=== PATIENT | female | born 1950 | race Caucasian/White ===

== ENCOUNTER 2023-10-18 08:05 | Outpatient (OUT) | payer MEDICARE, SELFPAY ==
--- NOTE | 2023-10-18 08:19 | MM_ITS ---
Patient Name: HERB EVANS MR#: [id number] : 1950 Exam Date: 10/18/2023 Ordering Doctor: DR ALLEN JARAMILLO D.O. RADIOLOGY REPORT PROCEDURE: MM TOMOSYNTHESIS SCREENING BI COMPARISON: MG MAMM SCREEN 3D EVER CAD, 04/21/2021. MG MAMM SCREEN EVER W CAD, 02/14/2017. MG MAMM SCREEN EVER W CAD, 01/14/2016. MG MAMM SCREEN EVER W CAD, 01/06/2014. INDICATIONS: Screening Calculator Name NCI Breast Cancer Risk Assessment Tool 5 Year Breast Cancer Risk 1.60% Lifetime Breast Cancer Risk 4.10% Personal Breast Cancer No Personal Ovarian Cancer No Treatments None Family Cancers None LOCATION: [facility] BREAST COMPOSITION: There are scattered areas of fibroglandular density. FINDINGS: DIAGNOSTIC CATEGORY 1--NEGATIVE. RIGHT BREAST: No significant suspicious finding. No significant change has occurred. LEFT BREAST: No significant suspicious finding. No significant change has occurred. RECOMMENDATIONS: ROUTINE MAMMOGRAM AND CLINICAL EVALUATION IN 12 MONTHS. PLEASE NOTE: A NORMAL MAMMOGRAM DOES NOT EXCLUDE THE POSSIBILITY OF BREAST CANCER. A CLINICALLY SUSPICIOUS PALPABLE LUMP SHOULD BE BIOPSIED. Dictated by: Lawson Aguayo M.D. on 10/18/2023 at 15:04 Approved by: Lawson Aguayo M.D. on 10/18/2023 at 15:07
== END 2023-10-18 08:06 | disposition home or self-care (01) ==
LOC: RAD 08:12
PROVIDERS: PCP Internal Medicine; Visit Provider Internal Medicine
DX: Z12.31 Encounter for screening mammogram for malignant neoplasm of breast (principal)
CPT/HCPCS: 77063; 77067

== ENCOUNTER 2024-11-01 09:16 | Outpatient (OUT) | payer MEDICARE, SELFPAY ==
--- NOTE | 2024-11-01 09:23 | MM_ITS ---
Patient Name: HERB EVANS MR#: [id number] : 1950 Exam Date: 11/01/2024 Ordering Doctor: DR ALLEN JARAMILLO D.O. RADIOLOGY REPORT PROCEDURE: MM TOMOSYNTHESIS SCREENING BI COMPARISON: MM TOMOSYNTHESIS SCREENING BI, 10/18/2023. MG MAMM SCREEN 3D EVER CAD, 04/21/2021. MG MAMM SCREEN EVER W CAD, 02/14/2017. MG MAMM SCREEN EVER W CAD, 01/06/2014. INDICATIONS: Screening Calculator Name NCI Breast Cancer Risk Assessment Tool 5 Year Breast Cancer Risk 1.60% Lifetime Breast Cancer Risk 3.90% Personal Breast Cancer No Personal Ovarian Cancer No Treatments None Family Cancers None LOCATION: [facility] BREAST COMPOSITION: There are scattered areas of fibroglandular density. FINDINGS: RIGHT BREAST: No significant suspicious finding. LEFT BREAST: No significant suspicious finding. DIAGNOSTIC CATEGORY 1--NEGATIVE. RECOMMENDATIONS: ROUTINE MAMMOGRAM AND CLINICAL EVALUATION IN 12 MONTHS. PLEASE NOTE: A NORMAL MAMMOGRAM DOES NOT EXCLUDE THE POSSIBILITY OF BREAST CANCER. A CLINICALLY SUSPICIOUS PALPABLE LUMP SHOULD BE BIOPSIED. Dictated by: Rioc Lamb MD on 11/01/2024 at 12:55 Approved by: Rico Lamb MD on 11/01/2024 at 14:33
== END 2024-11-01 09:17 | disposition home or self-care (01) ==
LOC: MAMMO 09:19
PROVIDERS: PCP Internal Medicine; Visit Provider Internal Medicine
DX: Z12.31 Encounter for screening mammogram for malignant neoplasm of breast (principal)
CPT/HCPCS: 77063; 77067

== ENCOUNTER 2024-11-18 10:26 | Outpatient (OUT) | payer MEDICARE, SELFPAY ==
--- OUTSIDE RECORDS SUMMARY | 2024-04-07 08:24 | XMS_ITS | Continuity of Care Document ---
Author Organization Formerly [facility]. If a dditional information is needed, contact Health Information Management at [phone] Address [address] [place] [address] Phone Care Team Providers Care Direct Service Professional Name Role Phone Unavailable Unavailable Unavailable Unavailable Unavailable Unavailable Unavailable Unavailable Unavailable Unavailable Unavailable Unavailable Unavailable Unavailable Unavailable Unavailable Unavailable Unavailable Unavailable Unavailable Unavailable Unavailable Unavailable Unavailable Unavailable Unavailable Unavailable Note [facility] ([facility])EMERGENCY PROVIDER REPORTREPORT#:[id number] REPORT STATUS: SignedDATE:04/07/24 TIME: 1047PATIENT: HERB EVANS UNIT #: [id number]#: [id number] ROOM/BED:: 51 AGE: 73 SEX: U PCP PHYS: Undefined ProviderSERVICE AUTHOR: Suleman Ro MD R3REP SRV REP SRV TM: 1047* ALL edits or amendments must be made on the electronic/computer document *SULEMAN RO 04/07/24 1047:HPI-Trauma Minor/FallFree Text HPI NotesFree Text HPI NotesPatient is a 74-year-old female past medical history of DVT on Eliquis, chronickidney disease, migraines, hypertension presenting after mechanical trip andfall with head trauma.Patient was walking on the sidewalk when her foot caught on the brick walkway,she fell forward onto her right face, did not lose consciousness, was ambulatoryafter the fact. Patient remembers the entire fall.Patient only complaining of pain in the right face, no neck pain, no back pain,no chest pain, no abdominal pain. No extremity pain.Airway intact, speaking full clear sentencesBilateral breath sounds, symmetric chest riseCirculation 2+ distal pulses equal in all extremitiesGCS 15, no focal deficits notedExposure: bruising with superficial abrasions to the right periorbital areanotedGeneralInitial Greet Date/Time 04/07/24 1156PresentationChief Complaint Fall, Facial painRisk-Trauma Minor/FallRisk StratificationNexus C-Spine CriteriaNo: Post midline tenderness, Intoxicated, Altered LOC/alertness, Focal neurodeficit pres, Distracting injury pres.Review of SystemsROS StatementsAll systems rev neg except as marked. (See HPI)Past Medical History - AdultStated Complaint TRAUMAAllergiesCoded Allergies:No Known Allergies (04/07/24)Additional Medical HistoryDVT on Eliquis, hypertensionAdditional Surgical HistoryDenies recent surgeryAlcohol Use Denies EtOH useDrug Use Denies recreational drugsSmoking status for patients 13 years old or older: Never SmokerPhysical ExamVital SignsVital SignsFirst Documented: Result Date Time Pulse Ox 99 04/07 1043 B/P 163/77 04/07 1043 B/P Mean 105 04/07 1043 O2 Delivery Room air 04/07 1043 Temp 35.5 04/07 1043 Pulse 84 04/07 1043 Resp 20 04/07 1043Last Documented: Result Date Time Pulse Ox 99 04/07 1043 B/P 163/77 04/07 1043 B/P Mean 105 04/07 1043 O2 Delivery Room air 04/07 1043 Temp 35.5 04/07 1043 Pulse 84 04/07 1043 Resp 20 04/07 1043Review of Vital Signs ReviewedFree Text PE NotesFree Text PE NotesPhysical ExamGeneral: Awake, Alert, No acute distressHead/eyes: Right periorbital ecchymosis most prominent in the inferior aspect,3 superficial abrasions to the right lateral mu-ism area, extraocular movementsintact, pupils 3 mm reactive bilaterally, No nystagmus, No scleral icterus,Conjunctiva NLEars/Nose/Throat: Airway patent, Mucous membranes moistNeck/Back: No midline vertebral tend, No paraspinal tenderness, No CVAtendernessResp/Chest: No respiratory distress, No rales, No rhonchi, No wheezing, Noretractions, No stridorCardiovascular: Heart rate NL, Regular rhythm, No gallop, No murmurs, No rubs,Cap refill not delayedAbdomen/GI: Soft, No guarding, No rebound, No distention, Non-tenderUpper Extremity: Non-tender, No erythema, No swelling, 2+ distal pulsesLower Extremity: Non-tender, No erythema, No swelling, 2+ distal pulsesNeurologic: Oriented X3, Speech NL, No motor deficits, No sensory deficitsInterpretation DiagnosticsLab Results InterpretationResultsLaboratory Tests04/07/24 1041:[Embedded Image Not Available]Laboratory Tests: 04/07 04/07 1041 1041 Chemistry Sodium (136 - 145 mmol/L) 145 Potassium (3.7 - 5.1 mmol/L) 4.0 Chloride (98 - 107 mmol/L) 110 H Carbon Dioxide (21 - 32 mmol/L) 27.0 Anion Gap 12.0 BUN (7 - 18 mg/dL) 22 H Creatinine (0.55 - 1.3 mg/dL) 1.69 H Est GFR (CKD-EPI 2020) (>/= 60) TNP BUN/Creatinine Ratio 13 Glucose (74 - 106 mg/dL) 77 Calcium (8.4 - 10.1 mg/dL) 10.6 H Serum HCG, Qual NEGATIVE Coagulation PT (10.0 - 12.8 Seconds) 12.6 INR (0.8 - 1.1) 1.1 PTT (Sampson) (25 - 38 Seconds) 36 Thrombelastograph SEE GRAPH Hematology WBC (4.0 - 10.5 10 3/u) 6.8 RBC (4.63 - 6.08 10 6/uL) 4.95 Hgb (13.7 - 17.5 g/dL) 14.2 Hct (40.1 - 51.0 %) 44.9 MCV (79.0 - 92.2 fL) 90.7 MCH (25.7 - 32.2 pg) 28.7 MCHC (32.3 - 36.5 g/dL) 31.6 L RDW (11.6 - 14.4 %) 15.1 H Plt Count (150 - 400 10 3/uL) 332 MPV (9.4 - 12.4 fL) 8.3 L Immature Gran % (0.0 - 0.4 %) 0.3 Neutrophils % (34.0 - 67.9 %) 73.2 H Lymphocytes % (21.8 - 53.1 %) 15.9 L Monocytes % (5.3 - 12.2 %) 8.6 Eosinophils % (0.8 - 7.0 %) 1.3 Basophils % (0.1 - 1.2 %) 0.7 Nucleated RBC % (0.0 - 0.2 %) 0.0 Immature Granulocytes (0.00 - 0.03 10 3/uL) 0.02 Neutrophils # (1.78 - 5.38 10 3/uL) 5.00 Lymphocytes # (1.32 - 3.57 10 3/uL) 1.09 L Monocytes # (0.30 - 0.82 10 3/uL) 0.59 Eosinophils # (0.04 - 0.54 10 3/uL) 0.09 Basophils # (0.01 - 0.08 10 3/uL) 0.05 Nucleated RBCs # (0.00 - 0.18 10 3/uL) 0.00 Toxicology Alcohol, Quantitative (<5.0 mg/dL) < 3.0 LRecent Impressions:RADIOLOGY - XR PELVIS 3 + V 04/07 1035 Report Impression - Status: SIGNED Entered: 04/07/2024 1102IMPRESSION:No evidence of acute displaced fracture, dislocation or subluxation.Degenerative changes noted within the femoroacetabular jointsbilaterally.Enthesopathic changes noted in the greater trochanteric region andischial tuberosities bilaterally.Degenerative changes also noted within the visualized part of thelower lumbar spine.Impression By: MOHSEN DRISCOLL MDRADIOLOGY - XR CHEST 1 V 04/07 1035 Report Impression - Status: SIGNED Entered: 04/07/2024 1101IMPRESSION:Clear lungsImpression By: MOHSEN DRISCOLL MDCAT SCAN - CT L-SPINE W/O CONTRAST 04/07 1053 Report Impression - Status: SIGNED Entered: 04/07/2024 1135IMPRESSION:No CT evidence of pulmonary embolus or other acute intrathoracicprocess.No traumatic injury noted within the abdominopelvic region.Thoracolumbar spondylosis without evidence of acute displacedfracture.Biliary colic without CT evidence for acute cholecystitisDiverticulosis without CT evidence for acute diverticulitis.Mild concentric mucosal thickening of the urinary bladder which mayrepresent underlying infectious/inflammatory processImpression By: MOHSEN DRISCOLL [facility] SCAN - CT T-SPINE W/O CONTRAST 04/07 105 Report Impression - Status: SIGNED Entered: 04/07/2024 1135IMPRESSION:No CT evidence of pulmonary embolus or other acute intrathoracicprocess.No traumatic injury noted within the abdominopelvic region.Thoracolumbar spondylosis without evidence of acute displacedfracture.Biliary colic without CT evidence for acute cholecystitisDiverticulosis without CT evidence for acute diverticulitis.Mild concentric mucosal thickening of the urinary bladder which mayrepresent underlying infectious/inflammatory processImpression By: MOHSEN DRISCOLL [facility] SCAN - CT HEAD/BRAIN W/O CONT 04/07 1053 Report Impression - Status: SIGNED Entered: 04/07/2024 1128IMPRESSION:1. No evidence of intracranial hemorrhage or midline shift.2. Chronic changes of microvascular ischemic disease and corticalvolume loss.Impression By: HUBER WALKER M.D.CAT SCAN - CT ABD PELVIS W CON 04/07 1053 Report Impression - Status: SIGNED Entered: 04/07/2024 1135IMPRESSION:No CT evidence of pulmonary embolus or other acute intrathoracicprocess.No traumatic injury noted within the abdominopelvic region.Thoracolumbar spondylosis without evidence of acute displacedfracture.Biliary colic without CT evidence for acute cholecystitisDiverticulosis without CT evidence for acute diverticulitis.Mild concentric mucosal thickening of the urinary bladder which mayrepresent underlying infectious/inflammatory processImpression By: MOHSEN DRISCOLL [facility] [place] - CTA CHEST W OR W WO CONT 04/07 105 Report Impression - Status: SIGNED Entered: 04/07/2024 1135IMPRESSION:No CT evidence of pulmonary embolus or other acute intrathoracicprocess.No traumatic injury noted within the abdominopelvic region.Thoracolumbar spondylosis without evidence of acute displacedfracture.Biliary colic without CT evidence for acute cholecystitisDiverticulosis without CT evidence for acute diverticulitis.Mild concentric mucosal thickening of the urinary bladder which mayrepresent underlying infectious/inflammatory processImpression By: MOHSEN DRISCOLL [facility] SCAN - CT C-SPINE W/O CONTRAST 04/07 1053 Report Impression - Status: SIGNED Entered: 04/07/2024 1130IMPRESSION:No evidence of acute fracture or traumatic subluxation in thecervical spine.Levoconvex curvature of the spine is noted. This maybe positional in nature or secondary to spasm. Please correlate withclinical findings.Mild degenerative changes.Impression By: HUBER WALKER M.D.Re- Evaluation MDMFree Text MDM NotesFree Text MDM NotesPatient is a 74-year-old female past medical history of DVT on Eliquis, chronickidney disease, migraines, hypertension presenting after mechanical trip andfall with head trauma.Differential includes injury to the ligamentous/osseous/vascular/muscularstructures of the head, neck, chest, abdomen, pelvis, C/T/L-spine, extremities.Workup includes CBC, BMP, coags, type and screen, UDS, alcohol level, chest x-ray, pelvis x-ray, CT head/C spine.Labs significant for no leukocytosis, normal hemoglobin, normal platelet count.Normal coags. Normal sodium and potassium, no elevated anion gap, creatinineelevated to 1.69 with known CKD history. Normal glucose. Negative alcohol.CT imaging significant for no acute traumatic injuryXray imaging significant for no acute traumatic injury, old rib fractures in thelateral border of 2nd and 3rd ribs.Patient re-evaluated, no significant pain, discussed results of CT scans withincidental findings of biliary colic and diverticulosis.Patient discharged stable condition, ambulatory without difficulty, strictreturn precautions. Severity and timeline of condition: Severe, acute Comorbidities affecting condition: See free text MDM History obtained from: See free text MDM/HPI External records to the ED reviewed: See free text MDM, previous medicalcharts Ddx: See free text MDM Labs/imaging considered: See free text MDM Meds: See free text MDM Independent Interpretations: See free text MDM Disposition: See free text MDMED CourseMedication(s) OrderedMedication(s) Ordered:Diagnostic Agents Sig/Magdy Start time Last Medication Dose Route Stop Time Status Admin Iopamidol 0 .STK-MED ONE 04/07 1133 DC 04/07 IV 1136Patient Discharge DepartureVital Signs/ConditionVital SignsFirst Documented: Result Date Time Pulse Ox 99 04/07 1043 B/P 163/77 04/07 1043 B/P Mean 105 04/07 1043 O2 Delivery Room air 04/07 1043 Temp 35.5 04/07 1043 Pulse 84 04/07 1043 Resp 20 04/07 1043Last Documented: Result Date Time Pulse Ox 99 04/07 1043 B/P 163/77 04/07 1043 B/P Mean 105 04/07 1043 O2 Delivery Room air 04/07 1043 Temp 35.5 04/07 1043 Pulse 84 04/07 1043 Resp 20 04/07 1043All vital signs available at the time of this entry have been reviewed.Condition StableDisposition DecisionDischarge )( Discharged to Home Yes )( Time 1216 )( Date 04/07/24Discharge/Care PlanCounseled Regarding Diagnosis, Lab results, Imaging studies, Need for follow-up,When to return to EDPatient Instructions Facial or Scalp Contusion, Etrh-ry-VlrhVclnyunjdj InstructionsThank you for being seen in the [facility]. all of your CT scans and x-rays showed no acute traumatic injury, there were some chronic findings, we wentover these findings together and I printed off a copy for you to bring the yourdoctor.Please come back if you have any new or worsening symptoms, especially worseningpain, nausea, vomiting, headache, confusion, numbness, tingling, weakness, orany other concerning symptoms.Please follow up with your primary care physician in 24-72 hours.Can use Tylenol to treat your pain at home.If you do not have insurance you can contact:[phone] insurance needed, sliding scale healthcare with financial counselorsDeparture FormsWRK/MAGDY 2 DAYS NO RESTRICTIONS Discharge NoteI have spoken with the patient and/or caregivers. I have explained the patient'scondition, diagnoses and treatment plan based on the information available to meat this time. I have answered the patient's and/or caregiver's questions andaddressed any concerns. The patient and/or caregivers have as good anunderstanding of the patient's diagnosis, condition and treatment plan as can beexpected at this point. The vital signs have been stable. The patient'scondition is stable and appropriate for discharge from the emergency department.The patient will pursue further outpatient evaluation with the primary carephysician or other designated or consulting physician as outlined in thedischarge instructions. The patient and/or caregivers are agreeable to this planof care and follow-up instructions have been explained in detail. The patientand/or caregivers have received these instructions in written format and haveexpressed an understanding of the discharge instructions. The patient and/orcaregivers are aware that any significant change in condition or worsening ofsymptoms should prompt an immediate return to this or the closest emergencydepartment or a call to 911.Quality MeasuresPt Treated for EMC? YesDIYAA LY MD 04/14/24 1104:Patient Discharge DepartureClinical ImpressionClinical ImpressionPrimary Impression: FallSecondary Impressions: Contusion, eye, right, Head injury, Periorbitalecchymosis of right eyeDischarge/Care PlanReferralsProvider Referral: Jimbo Honeycutt MD Address: [address] [place] [address] at 2001 at 1104RPT #: [id number] OF REPORT Problems Injury of head Onset:14-Apr-2024 Brianna Hinton MD Contusion of right eye regio n Onset:14-Apr-2024 Brianna Hinton MD Fall Onset:07-Apr-2024DR99 Periorbital ecchymosis Onset:07-Apr-2024DR99 Allergies and Adverse Reactions No Known Allergies(Allergy) Onset: 07-Apr-2024 Medications iopamidol;Provider Administration Instructions: RADIOLOGY USE ONLY Quantity:1 Brianna Hinton MD Start:07-Apr-2024 Status:Discontinued Comments:Provider Administration Instructions: RADIOLOGY USE ONLY Procedures CT C-SPINE W/O CONTRASTResult:[facility] NAME: [id number] [address] [facility] PHYS: [place]. [address] : AGE: 89 SEX: U RADIOLOGY DEPT. ACCT: [id number] LOC: N.ER PHONE #: [phone] EXAM DATE: 04/07/2024 STATUS: REG ER FAX #: [phone] RADIOLOGY NO: UNIT NO: [id number] ADMIT:04/07/24 DISCHARGE: EXAMS: [id number] CT C-SPINE W/O CONTRAST EXAM DESCRIPTION: - CT C-SPINE W/O CONTRAST HISTORY: 89 y/o U with NPI - Neck Pain/Injury Back pain. TECHNIQUE: High-speed spiral acquisition was performed through the cervical spine from skull base to clavicles without intravenous contrast material. Axial images were obtained with coronal and sagittal reconstructions. This protocol utilizes one or more of the following dose reduction techniques: automated exposure control, adjustment of mA and/or kV according to patient size, and/or use of iterative reconstruction technique. COMPARISON: None. FINDINGS: Visualized neck base, thyroid gland, lungs and mediastinum are within normal limits. The cervical vertebral body height is preserved with no evidence of fracture or subluxation. The odontoid process and lateral masses of C1 and C2 are intact. No significant prevertebral soft tissue swelling. Mild degenerative changes. Levoconvex curvature of the spine is noted. This may be positional in nature or secondary to spasm. Please correlate with clinical findings. IMPRESSION: No evidence of acute fracture or traumatic subluxation in the cervical spine.Levoconvex curvature of the spine is noted. This may be positional in nature or secondary to spasm. Please correlate with clinical findings. Mild degenerative changes. PAGE 1 Signed Report (CONTINUED) [facility] NAME: [id number] [address] [facility] PHYS: [place]. [address] : AGE: 89 SEX: U RADIOLOGY DEPT. ACCT: [id number] LOC: N.ER PHONE #: [phone] EXAM DATE: 04/07/2024 STATUS: REG ER FAX #: [phone] RADIOLOGY NO: UNIT NO: [id number] ADMIT:04/07/24 DISCHARGE: EXAMS: [id number] CT C-SPINE W/O CONTRAST <Continued> at 1127 Reported and signed by: Aki WALKER M.D. CC: Yaa Reed MD DICTATED DATE/TIME: 04/07/2024 (1124)TECHNOLOGIST: GREGORY BERRIOS RT(R)(CT) TECHNOLOGIST 2: MACY WHITFIELD ARRT(R)(CT) TRANSCRIBED DATE/TIME: 04/07/2024 (112)ASSOCIATE BIOLOGICAL SALES: [employer] SIGNATURE DATE/TIME: 04/07/2024 (1127)PAGE 2 Signed Report [facility] NAME: [place] [id number] [address] [place] [address] PHYS: [place]. [address] : AGE: 89 SEX: U RADIOLOGY DEPT. ACCT: [id number] LOC: N.ER PHONE #: [phone] EXAM DATE: 04/07/2024 STATUS: REG ER FAX #: [phone] RADIOLOGY NO: UNIT NO: [id number] ADMIT:04/07/24 DISCHARGE: EXAMS: [id number] CT C-SPINE W/O CONTRAST <Continued>PRINTED DATE/TIME: 04/07/2024 (1130) BATCH NO: N/A PAGE 3 Signed Report Date:07-Apr-2024 Status:Completed CTA CHEST W CONT OR W WO CONTResult:[facility] NAME: [id number] [address] [facility] PHYS: [place]. [address] : AGE: 89 SEX: U RADIOLOGY DEPT. ACCT: [id number] LOC: N.ER PHONE #: [phone] EXAM DATE: 04/07/2024 STATUS: REG ER FAX #: [phone] RADIOLOGY NO: UNIT NO: [id number] ADMIT:04/07/24 DISCHARGE: EXAMS: [id number] CTA CHEST W OR W WO CONT, [id number] CT ABD PELVIS W CON, [id number] CT T-SPINE W/O CONTRAST, [id number] CT L-SPINE W/O CONTRAST EXAM DESCRIPTION: - CTA CHEST W OR W WO CONT; - CT ABD PELVIS W CON; - CT T- SPINE W/O CONTRAST; - CT L-SPINE W/O CONTRAST HISTORY: 89 y/o U with OTHER - Other; TRAUMA NICOLE SCAN; BINJY - Back Injury; BPI - Back Pain/Injury TECHNIQUE: CT angiogram of the chest, abdomen and pelvis, and thoracolumbar spine was performed following the uneventful administration of 100 mL of Isovue 370 nonionic intravenous contrast. Coronal and sagittal reformations are provided for further interpretation. Maximum intensity projection are performed on the primary workstation for the purposes of CT pulmonary angiography. This protocol utilizes one or more of the following dose reduction techniques: automated exposure control, adjustment of mA and/or kV according to patient size, and/or use of iterative reconstruction technique. COMPARISON: None. FINDINGS: No filling defects within the opacified pulmonary arteries to suggest pulmonary embolism. The lung parenchyma and tracheobronchial tree are clear. No evidence of pleural effusion. The heart is normal in size without evidence of pericardial effusion. The thoracic aorta is normal in course and caliber. No mediastinal or hilar lymphadenopathy is identified. The mediastinal structures otherwise appear unremarkable. ABDOMEN Hepatobiliary: Normal parenchymal hemorrhage of the hepatic parenchyma without suspicious enhancing lesion. No intra/extra extra PAGE 1 Signed Report (CONTINUED) [facility] NAME: [id number] [address] [place] [address] PHYS: [place]. [address] : AGE: 89 SEX: U RADIOLOGY DEPT. ACCT: [id number] LOC: N.ER PHONE #: [phone] EXAM DATE: 04/07/2024 STATUS: [facility] FAX #: [phone] RADIOLOGY NO: UNIT NO: [id number] ADMIT:04/07/24 DISCHARGE: EXAMS: [id number] CTA CHEST W OR W WO CONT, [id number] CT ABD PELVIS W CON, [id number] CT T-SPINE W/O CONTRAST, [id number] CT L-SPINE W/O CONTRAST <Continued> biliary ductal dilatation. Biliary colic without CT evidence for acute cholecystitis. No evidence of mucosal thickening or pericholecystic fluid or fat stranding. Pancreas, adrenal gland, and spleen: All within normal limits without traumatic injury seen. Kidneys: Normal enhancement of the kidneys bilaterally, however overall appears slightly atrophic. No suspicious enhancement seen lesion seen Bowel: No evidence of bowel obstruction. Normal appearance of the small and large bowel. No CT evidence of acute appendicitis. Diverticulosis without CT evidence for acute diverticulitis. Mesentery: No suspicious lymphadenopathy. Abdominal aorta and its branches within normal limits. Pelvic: The pelvic structures is within normal limits. Atrophic appearance of the uterus. Mild concentric mucosal thickening of the urinary bladder which may represent underlying infectious/inflammatory process Musculoskeletal: No evidence of acute displaced fracture. Multilevel multifactorial degenerative changes along the thoracolumbar spine, more pronounced at L2-L3.. Surgical plate and multiple fully threaded screws along the lateral border of the left humerus. Hardware is well seated without evidence of lucency. IMPRESSION: No CT evidence of pulmonary embolus or other acute intrathoracic process. No traumatic injury noted within the abdominopelvic region. Thoracolumbar spondylosis without evidence of acute displaced fracture. Biliary colic without CT evidence for acute cholecystitis Diverticulosis without CT evidence for acute diverticulitis. PAGE 2 Signed Report (CONTINUED) [facility] NAME: [id number] [address] [place] [address] PHYS: [place]. [address] : AGE: 89 SEX: U RADIOLOGY DEPT. ACCT: [id number] LOC: N.ER PHONE #: [phone] EXAM DATE: 04/07/2024 STATUS: REG ER FAX #: [phone] RADIOLOGY NO: UNIT NO: [id number] ADMIT:04/07/24 DISCHARGE: EXAMS: [id number] CTA CHEST W OR W WO CONT, [id number] CT ABD PELVIS W CON, [id number] CT T-SPINE W/O CONTRAST, [id number] CT L-SPINE W/O CONTRAST <Continued> Mild concentric mucosal thickening of the urinary bladder which may represent underlying infectious/inflammatory process at 1132 Reported and signed by: MOHSEN DENISE MD CC: Yaa Reed MD DICTATED DATE/TIME: 04/07/2024 (1123)TECHNOLOGIST: GREGORY BERRIOS RT(R)(CT) TECHNOLOGIST 2: MACY WHITFIELD ARRWilmer(R)(CT) TRANSCRIBED DATE/TIME: 04/07/2024 (1123)ASSOCIATE BIOLOGICAL SALES: [employer] SIGNATURE DATE/TIME: 04/07/2024 (1132)PAGE 3 Signed Report [facility] NAME: LEE,[id number] [address] [facility] PHYS: [place]. [address] : AGE: 89 SEX: U RADIOLOGY DEPT. ACCT: [id number] LOC: N.ER PHONE #: [phone] EXAM DATE: 04/07/2024 STATUS: REG ER FAX #: [phone] RADIOLOGY NO: UNIT NO: [id number] ADMIT:04/07/24 DISCHARGE: EXAMS: [id number] CTA CHEST W OR W WO CONT, [id number] CT ABD PELVIS W CON, [id number] CT T-SPINE W/O CONTRAST, [id number] CT L-SPINE W/O CONTRAST <Continued>PRINTED DATE/TIME: 04/07/2024 (4878) BATCH NO: N/A PAGE 4 Signed Report Date:07-Apr-2024 Status:Completed CT ABDOMEN & PELVIS W/CONTRASTResult:[facility] NAME: LEE,[id number] [address] [facility] PHYS: [place]aa [place] [address] : AGE: 89 SEX: U RADIOLOGY DEPT. ACCT: [id number] LOC: N.ER PHONE #: [phone] EXAM DATE: 04/07/2024 STATUS: REG ER FAX #: [phone] RADIOLOGY NO: UNIT NO: [id number] ADMIT:04/07/24 DISCHARGE: EXAMS: [id number] CTA CHEST W OR W WO CONT, [id number] CT ABD PELVIS W CON, [id number] CT T-SPINE W/O CONTRAST, [id number] CT L-SPINE W/O CONTRAST EXAM DESCRIPTION: - CTA CHEST W OR W WO CONT; - CT ABD PELVIS W CON; - CT T-SPINE W/O CONTRAST; - CT L-SPINE W/O CONTRAST HISTORY: 89 y/o U with OTHER - Other; TRAUMA NICOLE SCAN; BINJY - Back Injury; BPI - Back Pain/Injury TECHNIQUE: CT angiogram of the chest, abdomen and pelvis, and thoracolumbar spine was performed following the uneventful administration of 100 mL of Isovue 370 nonionic intravenous contrast. Coronal and sagittal reformations are provided for further interpretation. Maximum intensity projection are performed on the primary workstation for the purposes of CT pulmonary angiography. This protocol utilizes one or more of the following dose reduction techniques: automated exposure control, adjustment of mA and/or kV according to patient size, and/or use of iterative reconstruction technique. COMPARISON: None. FINDINGS: No filling defects within the opacified pulmonary arteries to suggest pulmonary embolism. The lung parenchyma and tracheobronchial tree are clear. No evidence of pleural effusion. The heart is normal in size without evidence of pericardial effusion. The thoracic aorta is normal in course and caliber. No mediastinal or hilar lymphadenopathy is identified. The mediastinal structures otherwise appear unremarkable. ABDOMEN Hepatobiliary: Normal parenchymal hemorrhage of the hepatic parenchyma without suspicious enhancing lesion. No intra/extra extra PAGE 1 Signed Report (CONTINUED) [facility] NAME: [id number] [address] [place] [address] PHYS: [place] [address] : AGE: 89 SEX: U RADIOLOGY DEPT. ACCT: [id number] LOC: N.ER PHONE #: [phone] EXAM DATE: 04/07/2024 STATUS: [facility] ER FAX #: [phone] RADIOLOGY NO: UNIT NO: [id number] ADMIT:04/07/24 DISCHARGE: EXAMS: [id number] CTA CHEST W OR W WO CONT, [id number] CT ABD PELVIS W CON, [id number] CT T-SPINE W/O CONTRAST, [id number] CT L-SPINE W/O CONTRAST <Continued> biliary ductal dilatation. Biliary colic without CT evidence for acute cholecystitis. No evidence of mucosal thickening or pericholecystic fluid or fat stranding. Pancreas, adrenal gland, and spleen: All within normal limits without traumatic injury seen. Kidneys: Normal enhancement of the kidneys bilaterally, however overall appears slightly atrophic. No suspicious enhancement seen lesion seen Bowel: No evidence of bowel obstruction. Normal appearance of the small and large bowel. No CT evidence of acute appendicitis. Diverticulosis without CT evidence for acute diverticulitis. Mesentery: No suspicious lymphadenopathy. Abdominal aorta and its branches within normal limits. Pelvic: The pelvic structures is within normal limits. Atrophic appearance of the uterus. Mild concentric mucosal thickening of the urinary bladder which may represent underlying infectious/inflammatory process Musculoskeletal: No evidence of acute displaced fracture. Multilevel multifactorial degenerative changes along the thoracolumbar spine, more pronounced at L2-L3.. Surgical plate and multiple fully threaded screws along the lateral border of the left humerus. Hardware is well seated without evidence of lucency. IMPRESSION: No CT evidence of pulmonary embolus or other acute intrathoracic process. No traumatic injury noted within the abdominopelvic region. Thoracolumbar spondylosis without evidence of acute displaced fracture. Biliary colic without CT evidence for acute cholecystitis Diverticulosis without CT evidence for acute diverticulitis. PAGE 2 Signed Report (CONTINUED) [facility] NAME: [id number] [address] [place] [address] PHYS: [place] [address] : AGE: 89 SEX: U RADIOLOGY DEPT. ACCT: [id number] LOC: N.ER PHONE #: [phone] EXAM DATE: 04/07/2024 STATUS: REG ER FAX #: [phone] RADIOLOGY NO: UNIT NO: [id number] ADMIT:04/07/24 DISCHARGE: EXAMS: [id number] CTA CHEST W OR W WO CONT, [id number] CT ABD PELVIS W CON, [id number] CT T-SPINE W/O CONTRAST, [id number] CT L-SPINE W/O CONTRAST <Continued> Mild concentric mucosal thickening of the urinary bladder which may represent underlying infectious/inflammatory process at 1132 Reported and signed by: MOHSEN DENISE MD CC: Yaa Reed MD DICTATED DATE/TIME: 04/07/2024 (1123)TECHNOLOGIST: GREGORY BERRIOS RT(R)(CT) TECHNOLOGIST 2: MACY WHITFIELD(R)(CT) TRANSCRIBED DATE/TIME: 04/07/2024 (1123)ASSOCIATE BIOLOGICAL SALES: [employer] SIGNATURE DATE/TIME: 04/07/2024 (1132)PAGE 3 Signed Report [facility] NAME: [id number] [address] [place] [address] PHYS: Yaa Reed MD [facility] [address] : AGE: 89 SEX: U RADIOLOGY DEPT. ACCT: [id number] LOC: N.ER PHONE #: [phone] EXAM DATE: 04/07/2024 STATUS: REG ER FAX #: [phone] RADIOLOGY NO: UNIT NO: [id number] ADMIT:04/07/24 DISCHARGE: EXAMS: [id number] CTA CHEST W OR W WO CONT, [id number] CT ABD PELVIS W CON, [id number] CT T-SPINE W/O CONTRAST, [id number] CT L-SPINE W/O CONTRAST <Continued>PRINTED DATE/TIME: 04/07/2024 (113) BATCH NO: N/A PAGE 4 Signed Report Date:07-Apr-2024 Status:Completed CT T-SPINE W/O CONTRASTResult:[facility] NAME: [id number] [address] [facility] PHYS: Yaa Reed MD [facility] [address] : AGE: 89 SEX: U RADIOLOGY DEPT. ACCT: [id number] LOC: N.ER PHONE #: [phone] EXAM DATE: 04/07/2024 STATUS: REG ER FAX #: [phone] RADIOLOGY NO: UNIT NO: [id number] ADMIT:04/07/24 DISCHARGE: EXAMS: [id number] CTA CHEST W OR W WO CONT, [id number] CT ABD PELVIS W CON, [id number] CT T-SPINE W/O CONTRAST, [id number] CT L-SPINE W/O CONTRAST EXAM DESCRIPTION: - CTA CHEST W OR W WO CONT; - CT ABD PELVIS W CON; - CT T-SPINE W/O CONTRAST; - CT L-SPINE W/O CONTRAST HISTORY: 89 y/o U with OTHER - Other; TRAUMA NICOLE SCAN; BINJY - Back Injury; BPI - Back Pain/Injury TECHNIQUE: CT angiogram of the chest, abdomen and pelvis, and thoracolumbar spine was performed following the uneventful administration of 100 mL of Isovue 370 nonionic intravenous contrast. Coronal and sagittal reformations are provided for further interpretation. Maximum intensity projection are performed on the primary workstation for the purposes of CT pulmonary angiography. This protocol utilizes one or more of the following dose reduction techniques: automated exposure control, adjustment of mA and/or kV according to patient size, and/or use of iterative reconstruction technique. COMPARISON: None. FINDINGS: No filling defects within the opacified pulmonary arteries to suggest pulmonary embolism. The lung parenchyma and tracheobronchial tree are clear. No evidence of pleural effusion. The heart is normal in size without evidence of pericardial effusion. The thoracic aorta is normal in course and caliber. No mediastinal or hilar lymphadenopathy is identified. The mediastinal structures otherwise appear unremarkable. ABDOMEN Hepatobiliary: Normal parenchymal hemorrhage of the hepatic parenchyma without suspicious enhancing lesion. No intra/extra extra PAGE 1 Signed Report (CONTINUED) [facility] NAME: [id number] [address] [place] [address] PHYS: [place] [address] : AGE: 89 SEX: U RADIOLOGY DEPT. ACCT: [id number] LOC: N.ER PHONE #: [phone] EXAM DATE: 04/07/2024 STATUS: [facility] ER FAX #: [phone] RADIOLOGY NO: UNIT NO: [id number] ADMIT:04/07/24 DISCHARGE: EXAMS: [id number] CTA CHEST W OR W WO CONT, [id number] CT ABD PELVIS W CON, [id number] CT T-SPINE W/O CONTRAST, [id number] CT L-SPINE W/O CONTRAST <Continued> biliary ductal dilatation. Biliary colic without CT evidence for acute cholecystitis. No evidence of mucosal thickening or pericholecystic fluid or fat stranding. Pancreas, adrenal gland, and spleen: All within normal limits without traumatic injury seen. Kidneys: Normal enhancement of the kidneys bilaterally, however overall appears slightly atrophic. No suspicious enhancement seen lesion seen Bowel: No evidence of bowel obstruction. Normal appearance of the small and large bowel. No CT evidence of acute appendicitis. Diverticulosis without CT evidence for acute diverticulitis. Mesentery: No suspicious lymphadenopathy. Abdominal aorta and its branches within normal limits. Pelvic: The pelvic structures is within normal limits. Atrophic appearance of the uterus. Mild concentric mucosal thickening of the urinary bladder which may represent underlying infectious/inflammatory process Musculoskeletal: No evidence of acute displaced fracture. Multilevel multifactorial degenerative changes along the thoracolumbar spine, more pronounced at L2-L3.. Surgical plate and multiple fully threaded screws along the lateral border of the left humerus. Hardware is well seated without evidence of lucency. IMPRESSION: No CT evidence of pulmonary embolus or other acute intrathoracic process. No traumatic injury noted within the abdominopelvic region. Thoracolumbar spondylosis without evidence of acute displaced fracture. Biliary colic without CT evidence for acute cholecystitis Diverticulosis without CT evidence for acute diverticulitis. PAGE 2 Signed Report (CONTINUED) [facility] NAME: [id number] [address] [place] [address] PHYS: [place] [address] : AGE: 89 SEX: U RADIOLOGY DEPT. ACCT: [id number] LOC: N.ER PHONE #: [phone] EXAM DATE: 04/07/2024 STATUS: [facility] ER FAX #: [phone] RADIOLOGY NO: UNIT NO: [id number] ADMIT:04/07/24 DISCHARGE: EXAMS: [id number] CTA CHEST W OR W WO CONT, [id number] CT ABD PELVIS W CON, [id number] CT T-SPINE W/O CONTRAST, [id number] CT L-SPINE W/O CONTRAST <Continued> Mild concentric mucosal thickening of the urinary bladder which may represent underlying infectious/inflammatory process at 1132 Reported and signed by: MOHSEN DENISE MD CC: Yaa Reed MD DICTATED DATE/TIME: 04/07/2024 (1123)TECHNOLOGIST: GREGORY BERRIOS RT(R)(CT) TECHNOLOGIST 2: MACY WHITFIELD(R)(CT) TRANSCRIBED DATE/TIME: 04/07/2024 (1123)ASSOCIATE BIOLOGICAL SALES: [employer] SIGNATURE DATE/TIME: 04/07/2024 (1132)PAGE 3 Signed Report [facility] NAME: JOON HOWARDAR1280 [address] [facility] PHYS: Yaa Reed [facility] [address] : AGE: 89 SEX: U RADIOLOGY DEPT. ACCT: [id number] LOC: N.ER PHONE #: [phone] EXAM DATE: 04/07/2024 STATUS: REG ER FAX #: [phone] RADIOLOGY NO: UNIT NO: [id number] ADMIT:04/07/24 DISCHARGE: EXAMS: [id number] CTA CHEST W OR W WO CONT, [id number] CT ABD PELVIS W CON, [id number] CT T-SPINE W/O CONTRAST, [id number] CT L-SPINE W/O CONTRAST <Continued>PRINTED DATE/TIME: 04/07/2024 (4828) BATCH NO: N/A PAGE 4 Signed Report Date:07-Apr-2024 Status:Completed CT L-SPINE W/O CONTRASTResult:[facility] NAME: JOON HOWARDAR1280 [address] [facility] PHYS: Yaa Reed [place] [address] : AGE: 89 SEX: U RADIOLOGY DEPT. ACCT: [id number] LOC: N.ER PHONE #: [phone] EXAM DATE: 04/07/2024 STATUS: REG ER FAX #: [phone] RADIOLOGY NO: UNIT NO: [id number] ADMIT:04/07/24 DISCHARGE: EXAMS: [id number] CTA CHEST W OR W WO CONT, [id number] CT ABD PELVIS W CON, [id number] CT T-SPINE W/O CONTRAST, [id number] CT L-SPINE W/O CONTRAST EXAM DESCRIPTION: - CTA CHEST W OR W WO CONT; - CT ABD PELVIS W CON; - CT T-SPINE W/O CONTRAST; - CT L-SPINE W/O CONTRAST HISTORY: 89 y/o U with OTHER - Other; TRAUMA NICOLE SCAN; BINJY - Back Injury; BPI - Back Pain/Injury TECHNIQUE: CT angiogram of the chest, abdomen and pelvis, and thoracolumbar spine was performed following the uneventful administration of 100 mL of Isovue 370 nonionic intravenous contrast. Coronal and sagittal reformations are provided for further interpretation. Maximum intensity projection are performed on the primary workstation for the purposes of CT pulmonary angiography. This protocol utilizes one or more of the following dose reduction techniques: automated exposure control, adjustment of mA and/or kV according to patient size, and/or use of iterative reconstruction technique. COMPARISON: None. FINDINGS: No filling defects within the opacified pulmonary arteries to suggest pulmonary embolism. The lung parenchyma and tracheobronchial tree are clear. No evidence of pleural effusion. The heart is normal in size without evidence of pericardial effusion. The thoracic aorta is normal in course and caliber. No mediastinal or hilar lymphadenopathy is identified. The mediastinal structures otherwise appear unremarkable. ABDOMEN Hepatobiliary: Normal parenchymal hemorrhage of the hepatic parenchyma without suspicious enhancing lesion. No intra/extra extra PAGE 1 Signed Report (CONTINUED) [facility] NAME: [id number] [address] [place] [address] PHYS: [place] [address] : AGE: 89 SEX: U RADIOLOGY DEPT. ACCT: [id number] LOC: NBANNER PHONE #: [phone] EXAM DATE: 04/07/2024 STATUS: [facility] ER FAX #: [phone] RADIOLOGY NO: UNIT NO: [id number] ADMIT:04/07/24 DISCHARGE: EXAMS: [id number] CTA CHEST W OR W WO CONT, [id number] CT ABD PELVIS W CON, [id number] CT T-SPINE W/O CONTRAST, [id number] CT L-SPINE W/O CONTRAST <Continued> biliary ductal dilatation. Biliary colic without CT evidence for acute cholecystitis. No evidence of mucosal thickening or pericholecystic fluid or fat stranding. Pancreas, adrenal gland, and spleen: All within normal limits without traumatic injury seen. Kidneys: Normal enhancement of the kidneys bilaterally, however overall appears slightly atrophic. No suspicious enhancement seen lesion seen Bowel: No evidence of bowel obstruction. Normal appearance of the small and large bowel. No CT evidence of acute appendicitis. Diverticulosis without CT evidence for acute diverticulitis. Mesentery: No suspicious lymphadenopathy. Abdominal aorta and its branches within normal limits. Pelvic: The pelvic structures is within normal limits. Atrophic appearance of the uterus. Mild concentric mucosal thickening of the urinary bladder which may represent underlying infectious/inflammatory process Musculoskeletal: No evidence of acute displaced fracture. Multilevel multifactorial degenerative changes along the thoracolumbar spine, more pronounced at L2-L3.. Surgical plate and multiple fully threaded screws along the lateral border of the left humerus. Hardware is well seated without evidence of lucency. IMPRESSION: No CT evidence of pulmonary embolus or other acute intrathoracic process. No traumatic injury noted within the abdominopelvic region. Thoracolumbar spondylosis without evidence of acute displaced fracture. Biliary colic without CT evidence for acute cholecystitis Diverticulosis without CT evidence for acute diverticulitis. PAGE 2 Signed Report (CONTINUED) [facility] NAME: [id number] [address] [place] [address] PHYS: [place] [address] : AGE: 89 SEX: U RADIOLOGY DEPT. ACCT: [id number] LOC: N.ER PHONE #: [phone] EXAM DATE: 04/07/2024 STATUS: REG ER FAX #: [phone] RADIOLOGY NO: UNIT NO: [id number] ADMIT:04/07/24 DISCHARGE: EXAMS: [id number] CTA CHEST W OR W WO CONT, [id number] CT ABD PELVIS W CON, [id number] CT T-SPINE W/O CONTRAST, [id number] CT L-SPINE W/O CONTRAST <Continued> Mild concentric mucosal thickening of the urinary bladder which may represent underlying infectious/inflammatory process at 1132 Reported and signed by: MOHSEN DENISE MD CC: Yaa Reed MD DICTATED DATE/TIME: 04/07/2024 (1123)TECHNOLOGIST: GREGORY BERRIOS RT(R)(CT) TECHNOLOGIST 2: MACY WHITFIELD ARRT(R)(CT) TRANSCRIBED DATE/TIME: 04/07/2024 (1123)ASSOCIATE BIOLOGICAL SALES: [employer] SIGNATURE DATE/TIME: 04/07/2024 (1132)PAGE 3 Signed Report [facility] NAME: RICHIE HOWARD280 [address] [facility] PHYS: [place] [address] : AGE: 89 SEX: U RADIOLOGY DEPT. ACCT: [id number] LOC: N.ER PHONE #: [phone] EXAM DATE: 04/07/2024 STATUS: REG ER FAX #: [phone] RADIOLOGY NO: UNIT NO: [id number] ADMIT:04/07/24 DISCHARGE: EXAMS: [id number] CTA CHEST W OR W WO CONT, [id number] CT ABD PELVIS W CON, [id number] CT T-SPINE W/O CONTRAST, [id number] CT L-SPINE W/O CONTRAST <Continued>PRINTED DATE/TIME: 04/07/2024 (5396) BATCH NO: N/A PAGE 4 Signed Report Date:07-Apr-2024 Status:Completed CT HEAD/BRAIN W/O CONTResult:[facility] NAME: RICHIE HOWARD280 [address] [facility] PHYS: Yaa Reed [facility]. [address] : AGE: 89 SEX: U RADIOLOGY DEPT. ACCT: [id number] LOC: N.ER PHONE #: [phone] EXAM DATE: 04/07/2024 STATUS: [facility] ER FAX #: [phone] RADIOLOGY NO: UNIT NO: [id number] ADMIT:04/07/24 DISCHARGE: EXAMS: [id number] CT HEAD/BRAIN W/O CONT EXAM DESCRIPTION: - CT HEAD/BRAIN W/O CONT HISTORY: 89 y/o U with AMS - Altered Mental Status TECHNIQUE: High-speed spiral acquisition is performed through the head without intravenous contrast material. Coronal and sagittal reformations are provided for further interpretation. This protocol utilizes one or more of the following dose reduction techniques: automated exposure control, adjustment of mA and/or kV according to patient size, and/or use of iterative reconstruction technique. COMPARISON: None. FINDINGS: No evidence of acute intracranial hemorrhage, mass effect or midline shift. Thinning of the lenses is noted which may be seen in cataract surgery. Right periorbital soft tissue swelling is noted. Scattered low attenuation within the periventricular white matter, consistent with chronic microvascular ischemic change. Mild prominence of the lateral ventricles and sulci, likely secondary to underlying cortical volume loss. No abnormal extra-axial fluid collection identified. The bony calvarium appears unremarkable. The visualized paranasal sinuses and mastoid air cells are clear. IMPRESSION: 1. No evidence of intracranial hemorrhage or midline shift. 2. Chronic changes of microvascular ischemic disease and cortical volume loss. at 1124 Reported and signed by: Aki WALKER M.D. PAGE 1 Signed Report (CONTINUED) [facility] NAME: [id number] [address] [place] [address] PHYS: [place] [address] : AGE: 89 SEX: U RADIOLOGY DEPT. ACCT: [id number] LOC: N.ER PHONE #: [phone] EXAM DATE: 04/07/2024 STATUS: REG ER FAX #: [phone] RADIOLOGY NO: UNIT NO: [id number] ADMIT:04/07/24 DISCHARGE: EXAMS: [id number] CT HEAD/BRAIN W/O CONT <Continued>CC: Yaa Reed MD DICTATED DATE/TIME: 04/07/2024 (112)TECHNOLOGIST: GREGORY BERRIOS RT(R)(CT) TECHNOLOGIST 2: MACY WHITFIELD ARRT(R)(CT) TRANSCRIBED DATE/TIME: 04/07/2024 (112)ASSOCIATE BIOLOGICAL SALES: [employer] SIGNATURE DATE/TIME: 04/07/2024 (112)PAGE 2 Signed Report [facility] NAME: LEE,[id number] [address] [place] [address] PHYS: [place] [address] : AGE: 89 SEX: U RADIOLOGY DEPT. ACCT: [id number] LOC: N.ER PHONE #: [phone] EXAM DATE: 04/07/2024 STATUS: REG ER FAX #: [phone] RADIOLOGY NO: UNIT NO: [id number] ADMIT:04/07/24 DISCHARGE: EXAMS: [id number] CT HEAD/BRAIN W/O CONT <Continued>PRINTED DATE/TIME: 04/07/2024 (1125) BATCH NO: N/A PAGE 3 Signed Report Date:07-Apr-2024 Status:Completed XR PELVIS 3 + VResult:[facility] NAME: LEE,[id number] [address] [place] [address] PHYS: [place]. [address] : AGE: 89 SEX: U RADIOLOGY DEPT. ACCT: [id number] LOC: N.ER PHONE #: [phone] EXAM DATE: 04/07/2024 STATUS: REG ER FAX #: [phone] RADIOLOGY NO: UNIT NO: [id number] ADMIT:04/07/24 DISCHARGE: EXAMS: [id number] XR PELVIS 3 + V EXAM DESCRIPTION: - XR PELVIS 3 + V HISTORY: TRAUMA Injury COMPARISON: None. TECHNIQUE: Single view of the pelvis FINDINGS: Single-view of the IMPRESSION: No evidence of acute displaced fracture, dislocation or subluxation. Degenerative changes noted within the femoroacetabular joints bilaterally. Enthesopathic changes noted in the greater trochanteric region and ischial tuberosities bilaterally. Degenerative changes also noted within the visualized part of the lower lumbar spine. at 1059 Reported and signed by: MOHSEN DENISE MD CC: Yaa Reed MD DICTATED DATE/TIME: 04/07/2024 (8842)TECHNOLOGIST: ERI CHIRINOS ARRWilmer(R) TECHNOLOGIST 2: HARMONY STOUT(R) TRANSCRIBED DATE/TIME: 04/07/2024 (2068)ASSOCIATE BIOLOGICAL SALES: [employer] SIGNATURE DATE/TIME: 04/07/2024 (7523)PAGE 1 Signed Report [facility] NAME: [id number] [address] [facility] PHYS: [place]. [address] : AGE: 89 SEX: U RADIOLOGY DEPT. ACCT: [id number] LOC: N.ER PHONE #: [phone] EXAM DATE: 04/07/2024 STATUS: REG ER FAX #: [phone] RADIOLOGY NO: UNIT NO: [id number] ADMIT:04/07/24 DISCHARGE: EXAMS: [id number] XR PELVIS 3 + V <Continued>PRINTED DATE/TIME: 04/07/2024 (1102) BATCH NO: N/A PAGE 2 Signed Report Date:07-Apr-2024 Status:Completed XR CHEST 1 VResult:[facility] NAME: [id number] [address] [place] [address] PHYS: Yaa Reed MD [facility] [address] : AGE: 89 SEX: U RADIOLOGY DEPT. ACCT: [id number] LOC: N.ER PHONE #: [phone] EXAM DATE: 04/07/2024 STATUS: REG ER FAX #: [phone] RADIOLOGY NO: UNIT NO: [id number] ADMIT:04/07/24 DISCHARGE: EXAMS: [id number] XR CHEST 1 V EXAM DESCRIPTION: - XR CHEST 1 V HISTORY: TRAUMA - Trauma TECHNIQUE: Single view(s) of the chest was obtained. COMPARISON: None. FINDINGS: Life-support lines and devices: None Cardiac silhouette/mediastinum: Normal cardiac silhouette. Mediastinum is midline. Lungs: Lungs are clear with no opacity seen. Pleura: Bilateral costophrenic angles are clear. No evidence of pneumothorax. Osseous structures are within normal limits. Multiple old rib fracture seen more pronounced within the lateral border of the second and third ribs. IMPRESSION: Clear lungs at 1057 Reported and signed by: MOHSEN DENISE MD CC: Yaa Reed MD DICTATED DATE/TIME: 04/07/2024 (6336)TECHNOLOGIST: ERI CHIRINOS ARRT(R) TECHNOLOGIST 2: HARMONY STOUT RT(R) TRANSCRIBED DATE/TIME: 04/07/2024 (0756)ASSOCIATE BIOLOGICAL SALES: [employer] SIGNATURE DATE/TIME: 04/07/2024 (6032)PAGE 1 Signed Report [facility] NAME: JOON HOWARDAR1280 [address] [place] [address] PHYS: [place]. [address] : AGE: 89 SEX: U RADIOLOGY DEPT. ACCT: [id number] LOC: N.ER PHONE #: [phone] EXAM DATE: 04/07/2024 STATUS: REG ER FAX #: [phone] RADIOLOGY NO: UNIT NO: [id number] ADMIT:04/07/24 DISCHARGE: EXAMS: [id number] XR CHEST 1 V <Continued>PRINTED DATE/TIME: 04/07/2024 (110) BATCH NO: N/A PAGE 2 Signed Report Date:07-Apr-2024 Status:Completed Social History Smoking Status Never smoked tobacco Recorded: 07-Apr-2024 Results CBC,PLT,AUTO DIFF Ordered On:07-Apr-2024 Comment s:COMMENTS TO INTERNATIONAL ACCOUNT EXECUTIVE: TRAUMA 07-Apr-2024 10:59 BASOPHIL #0.05{10_3/uL}(Normal) Range:0.01{10_3/uL}-0.08{10_3/ uL} BASOPHIL %0.7%(Normal) Range:0.1 %-1.2% EOSINOPHIL #0.09{10_3/uL}(Normal) Range:0.04{10_3/uL}-0.54{10_3/ uL} EOSINOPHIL %1.3%(Normal) Range:0 .8%-7% FKSOPPYNBJ72.9%(Normal) Range:40 .1%-51% PAHQSTYTDI15.2g/dL(Normal) Range :13.7g/dL-17.5g/dL IMMATURE GRANULOCYTE0.02{10_3/uL}(No rmal) Range:0{10_3/uL}-0.03{10_3/uL} IMMATURE GRANULOCYTE %0.3%(Normal) Range:0%-0.4% LYMPHOCYTE #1.09{10_3/uL}(Low) Range:1.32{10_3/uL}-3.57{10_3/ uL} LYMPHOCYTE %15.9%(Low) Range:21. 8%-53.1% MEAN CELL HGB28.7pg(Normal) Rang e:25.7pg-32.2pg MEAN CELL HGB HPEHIQZOMIONR49.6g/dL(Low) Range:32.3g/dL-36.5g/dL MEAN CELL JAAHZU15.7fL(Normal) Range:79fL-92.2fL MONOCYTE #0.59{10_3/uL}(Normal) Range:0.3{10_3/uL}-0.82{10_3/u L} MONOCYTE %8.6%(Normal) Range:5.3 %-12.2% MEAN PLATELET VOLUME8.3fL(Low) Range:9.4fL-12.4fL NEUTROPHIL #5.00{10_3/uL}(Normal) Range:1.78{10_3/uL}-5.38{10_3/ uL} NEUTROPHIL %73.2%(High) Range:34 %-67.9% NUCLEATED RED BLOOD CELLS #0.00{10_3/uL}(Normal) Range:0{10_3/uL}-0.18{10_3/uL} NUCLEATED RED BLOOD CELLS %0.0%(Normal) Range:0%-0.2% PLATELET SKTWO712{10_3/uL}(Normal) Range:150{10_3/uL}-400{10_3/uL } RED BLOOD CELL4.95{10_6/uL}(Normal) Range:4.63{10_6/uL}-6.08{10_6/ uL} RED CELL DISTRIBUTIO N WIDTH15.1%(High) Range:11.6%-14.4% WHITE BLOOD CELL6.8{10_3/u}(Normal) Range:4{10_3/u}-10.5{10_3/u} BASIC METABOLIC PANEL Ordered On:07-Apr-2024 11:17 BUN/CREATININE RATIO13 BLOOD UREA NECKVYFO98ln/dL(High) Range:7mg/dL-18mg/dL PFMUFGC06.6mg/dL(High) Range:8.4 mg/dL-10.1mg/dL BJWHLLMB275zvfd/L(High) Range:98 mmol/L-107mmol/L CARBON EAXGKMN45.0mmol/L(Normal) Range:21mmol/L-32mmol/L CREATININE1.69mg/dL(High) Range: 0.55mg/dL-1.3mg/dL ANION GAP12.0 eGFRTest Not Performed Range:>/= 60 Comments:GFR is not calculated if sex is Unknown or Creatinine valueis non numerical AFEWGRT50lm/dL(Normal) Range:74m g/dL-106mg/dL Comments:Disclaimer Falsely depressed results may occur on samples drawn from patients receiving Sulfasalazine. Falsely elevated results may occur on samples drawn from patients receiving Sulfapyridine.Reference: [facility] POTASSIUM4.0mmol/L(Normal) Range :3.7mmol/L-5.1mmol/L Comments:SAMPLES EXPOSED TO BENZALKONIUM SALTS PRESENT IN CERTAINBLOOD CATHETER DEVICES WILL CAUSE FALSELY ELEVATED SODIUMAND POTASSIUM MEASUREMENTS.Reference: [facility] ZPHKLW182sqlh/L(Normal) Range:13 6mmol/L-145mmol/L Comments:SAMPLES EXPOSED TO BENZALKONIUM SALTS PRESENT IN CERTAINBLOOD CATHETER DEVICES WILL CAUSE FALSELY ELEVATED SODIUMAND POTASSIUM MEASUREMENTS.THIOPENTAL INCREASES SODIUM RESULTS MUCH 6 TO 33mmol/L DEPENDING ON DOSAGE OF THIOPENTAL.Reference: [facility] ALCOHOL Ordered On:07-Apr-2024 11:17 ALCOHOL< 3.0mg/dL(Low) Range:0 -5mg/dL Comments:THE ABOVE ALCOHOL RESULT IS FOR MEDICAL PURPOSES ONLY.FATAL >400 mg/dL HCG SERUM QUAL Ordered On:07-Apr-2024 11:10 HCG SERUM QUALNEGATIVE PROTHROMBIN TIME Ordered On:07-Apr-2024 Comments :COMMENTS TO INTERNATIONAL ACCOUNT EXECUTIVE: TRAUMA 07-Apr-2024 11:12 PROTHROMBIN TIME HLTDSUC53.6s(Normal) Range:10s-12.8s Comments:New methodology, please review new reference ranges. INTERNATIONAL NORMAL RATIO1.1(Normal) Range:0.8-1.1 Comments:New methodology, please review new reference ranges.Use INR for clinical decision making --Recommended Therapeutic Range:INDICATION TARGETED INR RANGEOn-X Valve (Aortic position) 1.5-2.0Prevention and treatment of VTE 2.0-3.0Atrial Fibrillation 2.0-3.0Acute myocardial infarction 2.0-3.0Valvular heart disease 2.0-3.0Prosthetic tissue heart valves 2.5-3.5Recurrent Thromboembolism 2.5-3.5Targeted INR range of 2.0-3.0 is appropriate for patientswho have a mechanical bileaflet in the aortic position,normal cardiac chamber size, and no other risk factors forstroke.Co-administration of argatroban and warfarin produces acombined effect on INR. Consult pharmacist or physician todetermine if warfarin dose should be held when INR iselevated and patient is receiving argatroban. THROMBOPLASTIN TIME PARTIAL Ordered On:07-Apr-20 Comments:COMMENTS TO INTERNATIONAL ACCOUNT EXECUTIVE: TRAUMA 07-Apr-2024 11:12 THROMBOPLASTIN TIME [id number](Normal) Range:25s-38s Comments:New methodology, please review new reference ranges.Therapeutic Heparin range is 58-92 seconds. KEN Ordered On:07-Apr-2024 Comments: [employer]: Extem Fibtem 07-Apr-2024 12:02 KEN TESTSEE GRAPH Vital Signs 07-Apr-2024 10:43 TEMP TMSGKBA73.5c Comments:35.5 Pulse84 Comments:84 Respiratory Rate20 Comments:20 O2 SAT99% Comments:99 BP Qfekyegl717ro[Hg] Comments:16 3 BP Hjapssxfo03lt[Hg] Comments:77 Height4.7042282[ft_us] Comments: 4 Ghgmhx50xb Comments:50.000 07-Apr-2024 10:43 BMI24.7kg/m2 Comments:24.7 Encounters Emergency Encounter Reason:TRAUMA Encounter Diagnosis:Abrasion, right knee, initial encounter,Hypertensive chronic kidney disease with stage 1 through stage 4 chronic kidney disease, or unspecified chronic kidney disease,Chronic kidney disease, unspecified,Personal history of other venous thrombosis and embolism,assisted (current) use of anticoagulants,Fall on same level from slipping, tripping and stumbling without subsequent striking against object, initial encounter,Activity, walking, marching and hiking,Sidewalk as the place of occurrence of the external cause,Contusion of right eyelid and periocular area, initial encounter 07-Apr-2024 10:[id number] 12:24 EDM EDDOC Generic for (Attending) [facility] Discharge Disposition:Discharged to home or self care (routine discharge) [id number] [facility]uma - History PhysicalREPORT#:[id number] REPORT STATUS: SignedDATE:04/07/24 TIME: 1120PATIENT: HERB EVANS UNIT #: [id number]#: [id number] ROOM/BED:AGE: 73 SEX: U ATTEND: Yaa Reed DT: AUTHOR: Alonso Martin PAREP SRV REP SRV TM: 1120* ALL edits or amendments must be made on the electronic/computer document *Alonso Martin 04/07/24 1120:History of Present IllnessPre-hospitalActivation level: partialArrival mode: EMS, groundMechanism of injury: Fall: same levelComplaints/injuries:Right face painHPIPCP:PCP: NO PRIMARY OR FAMILY PHYSICIANHPI:This is a 61 something year old female who [facility] via groundEMS as a level 2 trauma alert on 04/07/2024. Patient reports she was walkingwhen she had a mechanical fall after tripping over a brick. She struck her faceon the ground. No loss of consciousness.Negative backboard, negative C-collar.Airway: PatentBreathing: bilateral breath sounds on auscultation, tolerating room airCirculation: +2 distal pulses in all extremitiesDisability: GCSExposure: patient was fully exposed. Right-sided periorbital ecchymosis withoutlaceration, small skin abrasion to right knee.Cursory review of TB xrays demonstrate no acute osseous abnormalities of thechest or pelvis.Reported medical history includes DVT history left popliteal, CKD, hypertensionReported surgical history includes left humeral fracture history with repairORIFSocial history: Denies alcohol, drugs, smokingHistoryAdditional medical history:DVT, hypertension, CKDSmoking status for patients 13 years old or older: Never SmokerMedication/Allergy-Vaccine HxAllergies:Coded Allergies:No Known Allergies (04/07/24)Physical ExamVS/I OLast Documented: Result Date Time Pulse Ox 99 12/22 104 B/P 163/77 04/07 1043 B/P Mean 105 04/07 1043 O2 Delivery Room air 04/07 104 Temp 35.5 04/07 104 Pulse 84 04/07 1043 Resp 20 04/07 1043PATIENT WEIGHT:Weight (lb):Weight (oz):Weight (kg): 50.000General appearance: alert, awake, oriented, no acute distressHead/Eyes: normocephalic, Right periorbital ecchymosisENT: no malocclusion, normal dentitionNeck: atraumatic, full range of motion, non-tenderCardiovascular: pulses all extremitiesRespiratory/chest: aerating well, symmetric expansionAbdomen: soft, non-tender, no guardingBack/Spine: Back: atraumatic, no midline vertebral tendPelvis: atraumatic, pelvis stableGenitourinary: normal external examRectal: deferred, not indicatedExtremities: dry, moves allMusculoskeletal: full range of motion, normal inspectionNeuro/CERTIFIED OPHTHALMIC TECHNICIAN: alert, oriented X 3, follows commands, normal speech, no motordeficits, no sensory deficitsGlaswhite mountain regional medical center Coma Score: Copyright Sir Lam Holland Copyright Sir Lam Holland Eye opening: (4) Spontaneous Verbal response: (5) Oriented Best motor response: (6) Obeys commands GCS Score: 15Skin: dry, intactPsychiatry: normal affect, normal judgment/insight, normal moodDiagnosis, Assessment PlanFree Text DxA P NotesFree Text DxA P Notes:[id number] is a 61 something year old F , status post mechanical groundlevel fall, on 04/07/2024Tertiary survey completed on: 04/07/2024, no new injuries reportedInjuries:Right periorbital ecchymosis, s/p fall without LOCComorbidities:DVT (on Eliquis), CKD, hypertensionOther Diagnosis:AnxietyProcedures:NonePlan: Available radiologic studies have been evaluated, no acute surgicalintervention anticipated at this time. Disposition per ED.Please provide patient with trauma office information so that she may contact uswith any questions or concerns. She will be traveling to [facility] with family.Felipa Velásquez 04/07/24 1544:Diagnosis, Assessment PlanTime spent: Time spent on patient care (minutes): 36AttestationsAttestation needed: teaching physicianPhysician AttestationReviewed findings plan:The PA/MISSION WORKER/Resident's history was reviewed. The patient was interviewed andexamined by me.HPI: 73F s/p GLF w/ HS on Eliquis, -LOCMy personal exam reveals: GCS15. Rt cheek ecchymosis, swelling, Rt periorbitalabrasions, moving all extremities. No neuro deficitsI agree with the assessment and care plan, and confirm the diagnosis(es) above.ASSESSMENT PLAN:CTs negative for acute traumatic injuriesWill defer dispo to ED physicianhx of DVT on Eliquishx of CKD, HTN, Migraines at 1156 at 1548RPT #: [id number] OF REPORT Plan of Treatment Thank you for being seen in the [facility] ED. all of your CT scans and x- rays showed no acute traumatic injury, there were some chronic findings, we went over these findings together and I printed off a copy for you to bring the your doctor. Please come back if you have any new or worsening symptoms, especially worsening pain, nausea, vomiting, headache, confusion, numbness, tingling, weakness, or any other concerning symptoms. Please follow up with your primary care physician in 24-72 hours. Can use Tylenol to treat your pain at home. If you do not have insurance you can contact: [facility] [phone] No insurance needed, sliding scale healthcare with financial counselors Future Tests Future scheduled test information is unavailable Pending Tests Pending diagnostic test information is unavailable Future Visits Future appointment information is unavailable Referrals to Other Providers Reason for Referral Referral Start Date Provider Provider Contact Information Provider Address Jimbo Honeycutt MD Work Phone: [phone] [phone] Future Procedures Future procedure information is unavailable Future Medications Future medication information is unavailable Patient Instructions Instruction Admit Date Facial or Scalp Contusion, Vwhj-iq-Kypy April 07, 2024 9:35am Assessments Diagnosis Onset Date Resolution Status Admit Date Fall Active April 07, 2024 9:35am Periorbital ecchymosis of right eye Active April 07 9:35am
--- OUTSIDE RECORDS SUMMARY | 2024-11-18 10:31 | XMS_ITS | Clinical Summary ---
Author Organization [facility] Address [id number] [address] [place] [address] Care Team Providers Care General Production Laborer Name Role Phone Sanchez Cedillo MD Primary Care Provider + [phone] Allergies No known active allergies Medications aspirin 81 mg Take 81 mg by mouth daily. 7 Active magnesium oxide (MAG-OX) 400 mg tablet Take 400 mg by mouth 2 (two) times a day. Active atorvastatin (LIPITOR) 20 mg tablet Take 20 mg by mouth daily. taken at HS Active oxyCODONE-aceta minophen (PERCOCET) 5-325 mg per tablet Take 1-2 tablets by mouth every 6 (six) hours as needed for pain. Active cholecalciferol , vitamin D3, (cholecalcifero l) 1,000 units tablet Take 1,000 Units by mouth 2 (two) times daily at 0800 and 1500. Active DULoxetine (CYMBALTA) 60 mg capsule Take 120 mg by mouth daily. Active zonisamide (ZONEGRAN) 100 mg capsule Take 2-4 capsules by mouth 2 (two) times daily at 0800 and 1500. 2 caps AM and 4 caps PM Active teriparatide (FORTEO) 20 mcg/dose - 600 mcg/2.4 mL injection Inject 20 mcg under the skin Daily at 0630. Active acetaminophen (TYLENOL) 500 mg tablet Take 1,000 mg by mouth every 6 (six) hours as needed for pain, headaches or fever. Active Social History Tobacco Use Types Packs/Day Years Used Date Smoking Tobacco: Never Assessed Childcare Answer Date Recorded Childcare Unknown 09/26/2018 Employment Answer Date Recorded Employment Unknown 09/26/2018 Purpose - Life Answer Date Recorded Purpose and direction in life Unknown Comments Unknown Sex and Gender Information Value Date Recorded Sex Assigned at Not on file Legal Sex Female 11:21 AM EDT Gender Identity Not on file Sexual Orientation Not on file Last Filed Vital Signs Vital Sign Reading Time Taken Comments Blood Pressure 132/80 07/06/2016 2:00 PM EDT Pulse 84 07/06/2016 2:00 PM EDT Temperature 36.4 C (97.6 F) 07/06/2016 2:00 PM EDT Respiratory Rate 16 07/06/2016 2:00 PM EDT Oxygen Saturation - - Inhaled Oxygen Concentration - - Weight - - Height - - Body Mass Index - - Plan of Treatment Not on file Medical Devices Not on file Insurance [employer] [place] Care Teams General Production Laborer Relationship Specialty Start Date End Date Sanchez Cedillo MD PCP - General Orthopaedic Surgery 05/19/16
--- OUTSIDE RECORDS SUMMARY | 2024-11-18 10:32 | XMS_ITS | Patient Health Record ---
Author Organization [facility] [place] Address [address] [place] [address] Care Team Providers Care Metal Machine Operator Name Role Phone Harish Ayala DO Primary Care Provider Unavail able Allergies No Known Allergies Reason For Referral No Information Medications Medication SIG (Take, Route, Frequency, Duration) Notes Start Date End Date Status Zonisamide 100 MG Oral for 90 Days Active Ajovy Active Potassium Citrate ER 15 MEQ (1620 MG) 1 tablet Orally Twice a day for 90 days 01/24/2022 Active Acetaminophen Active Vitamin D Active Magnesium Oxide Acti ve Kerendia Not-Taking Cymbalta Active Crestor Active Imitrex Active Farxiga 10 MG Oral for 30 Days Active Social History Tobacco Use: Social History Observation Description Date Details (start date - stop date) Never Smoker NA - NA Tobacco Use/Smoking Question Answer Notes Patient is a nonsmoker Alcohol Screen (Audit-C) Question Answer Notes Did you have a drink containing alcohol in the p ast year? No Points 0 Interpretation Negative Problems Problem Type SNOMED Code ICD Code Onset Dates Problem Status W/U Status Risk Notes Problem Renal mass (125050963) Renal mass (N28.89) Active confirmed Problem 3393828 Renal tubular acidosis (N25.89) Active confirmed Problem Calculus of kidney and ureter (355005114) Calculus of kidney and ureter (N20.2) Active confirmed Problem Ultrasound scan abnormal (301850228) Abnormal ultrasound (R93.89) Active confirmed Plan Of Treatment Pending Test Test Name Order Date XR Abdomen AP (1 view) (KUB) * 3 Insurance Providers Payer Name Payer Address Payer Phone Subscriber Number Group Number Insured Name Patient Relationship to Insured Coverage Start Date Coverage End Date [employer] MED[employer]ARE ADV PLAN [address] [address] [place] [phone] [id number] Kat Gorman Self - patient is the insured 0 Medical (General) History Medical History History ICD Code Arthritis Glaucoma Hyperlipidemia Depression Kidney stone Renal mass N28.89 Calculus of kidney and ureter N20.2 Surgical History Surgery Date(Month/Year) cataract surgery right eye Shoulder surgery Knee surgery
[2024-11-18 11:00] LABS: Hematocrit 46.0 % (36.0-48.0); Hemoglobin 14.7 g/dL (12.0-16.0); Immature Granulocytes Abs Auto 0.01 10^3/uL (0.00-0.03); Immature Granulocytes Pct Auto 0.1 % (0.0-0.5); Lymphocytes Absolute Auto 1.4 10^3/uL (1.2-3.8); Mean Corpuscular HGB Conc 32.0 g/dL (29.9-35.2); Mean Corpuscular Hemoglobin 28.8 pg (26.7-34.0); Mean Corpuscular Volume 90.0 fL (81.0-99.0); Platelet Count 289 10^3/uL (150-450); Red Blood Count 5.11 10^6/uL (4.20-5.40); White Blood Count 7.3 10^3/uL (4.0-11.0)
[2024-11-18 11:28] LABS: Alanine Aminotransferase 38 U/L (14-59); Albumin Globulin Ratio 1.1; Albumin Level 3.8 g/dL (3.4-5.0); Alkaline Phosphatase 72 U/L (46-116); Anion Gap 12.8; Aspartate Amino Transferase 31 U/L (15-37); Blood Urea Nitrogen 28.0 mg/dL (7.0-18.0); Calcium 9.2 mg/dL (8.5-10.1); Carbon Dioxide 26.3 mmol/L (21.0-32.0); Chloride 104 mmol/L (98-107); Estimated GFR (African America 38 (>=60 mL/min/1.73m^2); Estimated GFR (Non-African Ame 32 (>=60 mL/min/1.73m^2); Globulin 3.6 g/dL; NT Pro B Type Natriuretic Pept 85.0 pg/mL (<=900.0); Potassium 4.1 mmol/L (3.5-5.1); Sodium 139 mmol/L (136-145); Thyroid Stimulating Hormone 1.244 uIU/mL (0.358-3.740); Total Protein 7.4 g/dL (6.4-8.2)
== END 2024-11-18 10:27 | disposition home or self-care (01) ==
LOC: LAB 10:29
PROVIDERS: PCP Internal Medicine; Visit Provider Internal Medicine
DX: I12.9 Hypertensive chronic kidney disease with stage 1 through stage 4 chronic kidney disease, or unspecified chronic kidney disease (principal); N18.32 Chronic kidney disease, stage 3b; R06.02 Shortness of breath; M81.0 Age-related osteoporosis without current pathological fracture; I82.402 Acute embolism and thrombosis of unspecified deep veins of left lower extremity; E55.9 Vitamin D deficiency, unspecified; E87.5 Hyperkalemia; Z79.899 Other long term (current) drug therapy; R63.5 Abnormal weight gain
CPT/HCPCS: 36415; 80051; 80076; 80203; 82306; 82310; 82533; 82565; 83036; 83090; 83880; 84443; 84520; 85025; 85378